=== PATIENT | male | born 1955 | race Caucasian/White ===

== ENCOUNTER 2022-06-23 09:34 | Emergency (ER) | payer OTHER ==
[~2022-06-23] VITALS: Ht 172.7 cm; Wt 75.0 kg
[2022-06-23 12:16] VITALS: BP 155/88
[2022-06-23] MEDS ORDERED: BACTRIM DS1 TAB PO (12:37)
== END 2022-06-23 12:32 | disposition home or self-care (01) | DRG 603 ==
LOC: ED 09:34
DX: L02.31 Cutaneous abscess of buttock (principal)

== ENCOUNTER 2022-07-01 10:06 | Emergency (ER) | payer OTHER ==
[~2022-07-01] VITALS: Ht 172.7 cm; Wt 73.4 kg
[~2022-07-01 10:06] MED LIST: BACTRIM DS1 TAB PO
[2022-07-01] MEDS ORDERED: BACTRIM DS1 TAB PO (12:54)
[2022-07-01] MEDS ORDERED: DOXYCYCLINE100 MG PO (13:10)
[2022-07-01 14:20] VITALS: BP 121/71
== END 2022-07-01 14:38 | disposition home or self-care (01) | DRG 603 ==
LOC: ED 10:06
DX: L02.31 Cutaneous abscess of buttock (principal)

== ENCOUNTER 2022-07-10 08:34 | Emergency (ER) | payer OTHER ==
[~2022-07-10] VITALS: Ht 172.7 cm; Wt 75.3 kg
[2022-07-10] VITALS (17 sets, daily range): BP systolic 108–149; BP diastolic 64–89
[~2022-07-10 08:34] MED LIST changes: +DOXYCYCLINE100 MG PO
[2022-07-10 09:39] LABS: BASO% 0.5 % (0-3); EOS% 3.3 % (0-8); HEMATOCRIT 41.5 % (39.0-50.0); HEMOGLOBIN 14.1 g/dl (14.0-18.0); IMMATURE GRANULOCYTES 0.5 % (0.0-5.0); LYMPH% 25.3 % (15-41); MEAN CELL VOLUME 93.5 fL CALC (80.0-100.0); MEAN CORPUSCULAR HGB 31.8 pG CALC (26.0-32.0); MONO% 9.6 % (2-13); NEUT# 3.53 thou/uL (1.82-7.42); NEUT% 60.8 % (42-76); RED BLOOD COUNT 4.44 mill/uL (4.70-6.10); RED CELL DISTRI WIDTH 13.5 % (11.5-15.5)
[2022-07-10 09:46] LABS: ALBUMIN 3.7 g/dL (3.2-5.0); ALKALINE PHOSPHATASE 81 u/l (38-126); ANION GAP 10 (6-22 (CALC)); BILIRUBIN, TOTAL 0.5 mg/dL (0.0-1.4); BUN 12 mg/dL (8-23); BUN/CREATININE RATIO 18 (12-20 (CALC)); CARBON DIOXIDE 25 mmol/l (22-30); CHLORIDE 107 mmol/l (95-108); CREATININE 0.7 mg/dL (0.7-1.3); GFR FOR AFR.AMER. > 60 ML/MIN (>=60 (CALC)); GFR OTHER RACES > 60 ML/MIN (>=60 (CALC)); LIPASE 43 u/l (23-300); POTASSIUM 3.6 mmol/l (3.5-5.1); SGOT/AST 28 u/l (19-48); SODIUM 138 mmol/l (137-146); TOTAL PROTEIN 6.4 g/dL (6.3-8.2)
[2022-07-10] MEDS ORDERED: BACTRIM DS1 TAB PO (13:05)
[2022-07-10] MEDS ORDERED: DOXYCYCLINE100 MG PO (13:05)
== END 2022-07-10 13:30 | disposition home or self-care (01) | DRG 395 ==
LOC: ED 08:34
PROVIDERS: Internal Medicine
DX: K60.3 Anal fistula (principal); R74.02 Elevation of levels of lactic acid dehydrogenase [LDH]
CPT/HCPCS: Q9967